=== PATIENT | female | born 1960 | race Caucasian/White ===

== ENCOUNTER → 2018-07-13 | Outpatient (CLI) | payer OTHER ==
[~2018-07-13] MED LIST: ATIVAN1 MG PO; EVOXAC30 MG PO; LEVOTHYROXINE0.1 MG PO; PERCOCET 325 MG1 TA5 PO
[2018-07-13 09:12] LABS: BUN 9 mg/dl (7-24); CHLORIDE 109 mmol/L (98-107); CREATININE 0.65 mg/dL (0.55-1.02); POTASSIUM 3.9 mmol/L (3.5-5.1); SODIUM 142 mmol/L (136-145)
== END | disposition home or self-care (01) ==
LOC: LAB 08:15 → CT 09:00
PROVIDERS: Nurse Practitioner Family
DX: G44.319 Acute post-traumatic headache, not intractable (principal); M54.2 Cervicalgia; V89.2XXD Person injured in unspecified motor-vehicle accident, traffic, subsequent encounter

== ENCOUNTER → 2019-09-22 | Outpatient (CLI) | payer OTHER | LOC: MRI 09-19 14:00 | DX: I72.9 Aneurysm of unspecified site (principal) ==

== ENCOUNTER → 2019-10-06 | Outpatient (CLI) | payer OTHER | END | disposition home or self-care (01) | LOC: MAMMO 08:24 | DX: Z12.39 Encounter for other screening for malignant neoplasm of breast (principal) ==

== ENCOUNTER → 2019-12-31 | Outpatient (CLI) | payer OTHER | END | disposition home or self-care (01) | LOC: LAB 09:50 | PROVIDERS: Nurse Practitioner Family | DX: R68.2 Dry mouth, unspecified (principal) ==

== ENCOUNTER → 2020-09-15 | Outpatient (CLI) | payer OTHER | END | disposition home or self-care (01) | LOC: MRI 13:39 | PROVIDERS: ATTEND Nurse Practitioner | DX: I67.1 Cerebral aneurysm, nonruptured (principal); I10 Essential (primary) hypertension ==